=== PATIENT | female | born 1945 | race Caucasian/White ===

== ENCOUNTER 2017-05-07 18:59 | Inpatient (IN) | payer OTHER ==
[~2017-05-07] VITALS: Ht 157.5 cm; Wt 63.5 kg
[~2017-05-07 18:59] MED LIST: SIMV10TA84 PO
[2017-05-07] MEDS ORDERED: SODIUM CHLORIDE 0.9% 1,000 ML IV ONE (19:36)
[2017-05-07] MEDS ORDERED: ONDANSETRON HCL 4 MG/2 ML VIAL IV ONE (19:45)
[2017-05-07] MEDS ORDERED: MORPHINE SULFATE 4 MG/ML SYRG IV ONE (19:45)
[2017-05-07 20:02] LABS: Basophils # (auto) 0 uL; Basophils % (auto) 0.3 % (0.0-2.0); CONDITION Y; DEFINITIVE SEE PRINTOUT; Eosinophils # (auto) 0 uL; Eosinophils % (auto) 0.1 % (0.0-7.0); Hematocrit 32.9 % (36.0-46.0); Hemoglobin 11.2 g/dL (12.2-16.2); Lymphocytes # (auto) 1.2 uL; Mean Corpuscular Hemoglobin 35.8 pg (28.0-32.0); Mean Corpuscular Hgb Conc. 34.1 g/dL (32.0-36.0); Mean Platelet Volume 8.9 fL (7.4-10.4); Monocytes # (auto) 0.5 uL; Monocytes % (auto) 4.3 % (0.0-12.0); Neutrophils % (auto) 84.3 % (37.0-80.0); Platelet Count (auto) 186 10^3/uL (140-450); Red Cell Distribution Width 15.4 % (11.6-16.0); White Blood Cell 10.6 10^3/uL (4.4-10.8)
[2017-05-07 20:08] LABS: INR 1.09 (0.9-1.15); Partial Thromboplastin Time 29.9 sec (22.64-33.71); Prothrombin Time 11.9 sec (9.37-12.3)
[2017-05-07 20:20] LABS: Albumin 2.7 g/dL (3.4-5.0); BUN/Creatinine Ratio 14.2; Calcium 8.1 mg/dL (8.5-10.1); Magnesium 1.8 mg/dL (1.6-2.6); Potassium 3.8 mmol/L (3.5-5.1)
[2017-05-07 20:35] LABS: Macrocytosis Moderate; Platelet Estimate Adequate
[2017-05-07 20:38] LABS: B-Type Natriuretic Peptide 174.86 pg/mL (0-100)
[2017-05-07 21:12] LABS: Temperature: 22.9 C (20.0-25.0)
[2017-05-07] MEDS ORDERED: ASPirin 81 mg TAB PO ONE (23:00)
[2017-05-07] MEDS: SODIUM CHLORIDE 0.9% 1,000 ML IV SCH (23:00)
[2017-05-07] MEDS ORDERED: SODIUM CHLORIDE 0.9% 500 ML IV ONE (23:00)
[2017-05-07] MEDS ORDERED: NITROGLYCERIN 0.4 MG SL TAB SL PRN (23:00)
[2017-05-07] MEDS ORDERED: MORPHINE SULF INJ 2 MG/ML SYRINGE 1ML IV PRN (23:00)
[2017-05-07] MEDS ORDERED: ONDANSETRON HCL 4 MG/2 ML VIAL IV PRN (23:00)
[2017-05-07] MEDS ORDERED: ACETAMINOPHEN 325 MG TAB PO PRN (23:00)
[2017-05-08] MEDS: traZODone HCL 50 MG TAB PO SCH ×2 (02:08→21:42)
[2017-05-08] MEDS: ASPirin 81 mg TAB PO SCH (02:11)
[2017-05-08] MEDS: TEMAZEPAM 15 MG CAP PO PRN ×2 (02:11→22:48)
[2017-05-08] MEDS ORDERED: ENOXAPARIN SOD 60 MG/0.6 ML SYRINGE SC ONE (03:45)
[2017-05-08 06:39] LABS: Basophils # (auto) 0 uL; CONDITION Y; DEFINITIVE SEE PRINTOUT; Eosinophils # (auto) 0 uL; Eosinophils % (auto) 0.4 % (0.0-7.0); Hematocrit 35.1 % (36.0-46.0); Hemoglobin 11.8 g/dL (12.2-16.2); Lymphocytes # (auto) 1.8 uL; Lymphocytes % (auto) 23.8 % (10.0-50.0); Mean Corpuscular Hemoglobin 35.5 pg (28.0-32.0); Mean Corpuscular Hgb Conc. 33.5 g/dL (32.0-36.0); Mean Corpuscular Volume 105.9 fL (80.0-100.0); Mean Platelet Volume 8.9 fL (7.4-10.4); Monocytes # (auto) 0.5 uL; Monocytes % (auto) 7.2 % (0.0-12.0); Neutrophils # (auto) 5.1 uL; Neutrophils % (auto) 68.6 % (37.0-80.0); Platelet Count (auto) 203 10^3/uL (140-450); Red Cell Distribution Width 15.8 % (11.6-16.0); White Blood Cell 7.4 10^3/uL (4.4-10.8)
[2017-05-08 07:15] LABS: Potassium 3.5 mmol/L (3.5-5.1)
[2017-05-08 07:25] LABS: Albumin 2.6 g/dL (3.4-5.0); BUN/Creatinine Ratio 15.7; Bilirubin, Total 0.9 mg/dL (0.2-1.0); Total Protein 5.9 g/dL (6.4-8.2)
[2017-05-08] MEDS: HYDROcodone-ACET 5/325MG TAB PO PRN ×2 (09:10→15:40)
[2017-05-08] MEDS ORDERED: FAMOTIDINE 20 MG TAB PO SCH ×2 (10:00)
[2017-05-08] MEDS ORDERED: ENOXAPARIN SOD 30 MG/0.3 ML SYRINGE SC SCH (10:00)
[2017-05-08] MEDS: LISINOPRIL 5 MG TAB PO SCH (10:58)
[2017-05-08] MEDS: SODIUM CHLORIDE 0.9% 1,000 ML IV SCH (13:38)
[2017-05-08 13:49] LABS: Urine Bilirubin Negative (Negative); Urine Blood TRACE /uL (Negative); Urine Glucose Normal (Normal); Urine Ketone Negative (Negative); Urine Nitrite Negative (Negative); Urine RBC 3 /hpf (0 - 4); Urine Squamous Epithelial Cell FEW /hpf (<5); Urine Urobilinogen Normal (Negative); Urine pH 5.5 (5.0-8.0)
[2017-05-08] MEDS ORDERED: cefTRIAXone 1GM/50ML D5W 50 ML IV ONE (16:30)
[2017-05-08 17:34] LABS: Temperature: 22.9 C (20.0-25.0)
[2017-05-08] MEDS ORDERED: AZITHROMYCIN 500MG/D5W 250ML 250 ML IV ONE (21:30)
[2017-05-08] MEDS: METOPROLOL TARTRATE 25 MG TAB PO SCH (21:42)
[2017-05-09] VITALS (7 sets, daily range): BP systolic 118–165; BP diastolic 58–90
[2017-05-09] MEDS ORDERED: LORazepam 2MG/ML-1ML VIAL IV PRN
[2017-05-09] MEDS: SODIUM CHLORIDE 0.9% 1,000 ML IV SCH ×2 (01:26→14:46)
[2017-05-09] MEDS ORDERED: DIPH25CA6 PO (03:23)
[2017-05-09] MEDS ORDERED: ALBUAER3 IN (03:23)
[2017-05-09] MEDS ORDERED: MULTCAP45 PO (03:23)
[2017-05-09] MEDS ORDERED: MOME200A INH (03:23)
[2017-05-09] MEDS ORDERED: OMEP20CA74 PO (03:23)
[2017-05-09 05:29] LABS: Cholesterol 150 mg/dL (< 200); HDL Cholesterol 59 mg/dL (40-59); LDL Cholesterol 69 mg/dL (< 100); Triglycerides 76 mg/dL (< 150)
[2017-05-09] MEDS: cefTRIAXone 1GM/50ML D5W 50 ML IV SCH (08:54)
[2017-05-09] MEDS ORDERED: ENOXAPARIN SOD 30 MG/0.3 ML SYRINGE SC SCH (10:00)
[2017-05-09] MEDS: ASPirin 81 mg TAB PO SCH (10:00)
[2017-05-09] MEDS: METOPROLOL TARTRATE 25 MG TAB PO SCH ×3 (10:00→23:49)
[2017-05-09] MEDS: PANTOPRAZOLE 40 MG TAB PO SCH (10:00)
[2017-05-09] MEDS: LISINOPRIL 5 MG TAB PO SCH (10:00)
[2017-05-09] MEDS: AZITHROMYCIN 500MG/D5W 250ML 250 ML IV SCH (10:56)
[2017-05-09] MEDS: ALBUTEROL SULF 2.5 MG/0.5ML(0.5%) NEB SOLN NEB SCH ×2 (18:00→22:00)
[2017-05-09] MEDS: LORazepam 2MG/ML-1ML VIAL IV PRN (20:30)
[2017-05-09] MEDS: traZODone HCL 50 MG TAB PO SCH (20:50)
[2017-05-09] MEDS ORDERED: DILTIAZEM HCL 25 MG/5 ML VIAL IV ONE (23:00)
[2017-05-09] MEDS: TEMAZEPAM 15 MG CAP PO PRN (23:09)
[2017-05-10] VITALS: BP 122/78
[2017-05-10] MEDS ORDERED: DILTIAZEM HCL 25 MG/5 ML VIAL IV ONE (01:30)
[2017-05-10] MEDS: LORazepam 2MG/ML-1ML VIAL IV PRN (02:12)
[2017-05-10] MEDS: ALBUTEROL SULF 2.5 MG/0.5ML(0.5%) NEB SOLN NEB SCH ×6 (02:20→21:13)
[2017-05-10 04:00] VITALS: BP 159/94
[2017-05-10 08:00] VITALS: BP 111/48
[2017-05-10] MEDS: SODIUM CHLORIDE 0.9% 1,000 ML IV SCH ×2 (08:00→17:26)
[2017-05-10] MEDS: cefTRIAXone 1GM/50ML D5W 50 ML IV SCH (09:16)
[2017-05-10] MEDS ORDERED: ENOXAPARIN SOD 40 MG/0.4 ML SYRINGE SC SCH (10:00)
[2017-05-10] MEDS ORDERED: TEMA30CA5 PO (10:20)
[2017-05-10] MEDS ORDERED: TRAZ100T2 PO (10:20)
[2017-05-10] MEDS: AZITHROMYCIN 500MG/D5W 250ML 250 ML IV SCH (10:22)
[2017-05-10] MEDS: PANTOPRAZOLE 40 MG TAB PO SCH (10:22)
[2017-05-10] MEDS: ASPirin 81 mg TAB PO SCH (10:22)
[2017-05-10] MEDS: LISINOPRIL 5 MG TAB PO SCH (10:24)
[2017-05-10] MEDS: METOPROLOL TARTRATE 25 MG TAB PO SCH (10:25)
[2017-05-10] MEDS ORDERED: chlordiazePOXIDE HCL 25 MG CAP PO PRN (11:00)
[2017-05-10 12:00] VITALS: BP 113/68
[2017-05-10] MEDS ORDERED: THIAMINE HCL 100 MG/ML 2ML VIAL IV ONE (12:45)
[2017-05-10] MEDS ORDERED: chlordiazePOXIDE HCL 25 MG CAP PO ONE (12:45)
[2017-05-10] MEDS: VERAPAMIL HCL 40 MG TAB PO SCH ×2 (13:33→22:20)
[2017-05-10 15:12] LABS: Albumin 2.5 g/dL (3.4-5.0); BUN/Creatinine Ratio 15.7; Calcium 8.3 mg/dL (8.5-10.1); Potassium 3.6 mmol/L (3.5-5.1)
[2017-05-10 15:13] LABS: INR 1.06 (0.9-1.15); Partial Thromboplastin Time 26.5 sec (22.64-33.71); Prothrombin Time 11.6 sec (9.37-12.3)
[2017-05-10 15:16] LABS: Bilirubin, Total 0.8 mg/dL (0.2-1.0); Total Protein 5.7 g/dL (6.4-8.2)
[2017-05-10] MEDS ORDERED: WARFARIN SODIUM 2.5 MG TAB PO ONE (17:00)
[2017-05-10] MEDS: chlordiazePOXIDE HCL 5 MG CAP PO SCH (18:28)
[2017-05-10 20:15] VITALS: BP 131/64
[2017-05-10] MEDS: traZODone HCL 50 MG TAB PO SCH (22:21)
[2017-05-10] MEDS: ENOXAPARIN SOD 60 MG/0.6 ML SYRINGE SC SCH (22:22)
[2017-05-10] MEDS: AMIODARONE HCL 200 MG TAB PO SCH (22:22)
[2017-05-11] MEDS: ALBUTEROL SULF 2.5 MG/0.5ML(0.5%) NEB SOLN NEB SCH ×5 (02:38→18:42)
[2017-05-11 04:00] VITALS: BP 98/59
[2017-05-11] MEDS: chlordiazePOXIDE HCL 5 MG CAP PO SCH ×4 (06:00→17:07)
[2017-05-11] MEDS: SODIUM CHLORIDE 0.9% 1,000 ML IV SCH (06:00)
[2017-05-11] MEDS: VERAPAMIL HCL 40 MG TAB PO SCH ×3 (06:13→22:00)
[2017-05-11 08:00] VITALS: BP 119/62
[2017-05-11 08:32] LABS: Basophils # (auto) 0 uL; Basophils % (auto) 0.4 % (0.0-2.0); CONDITION Y; DEFINITIVE SEE PRINTOUT; Eosinophils # (auto) 0.1 uL; Hemoglobin 10.2 g/dL (12.2-16.2); Lymphocytes # (auto) 2.8 uL; Lymphocytes % (auto) 42.3 % (10.0-50.0); Mean Corpuscular Hemoglobin 35.4 pg (28.0-32.0); Mean Corpuscular Volume 107.3 fL (80.0-100.0); Mean Platelet Volume 9.1 fL (7.4-10.4); Monocytes % (auto) 15.2 % (0.0-12.0); Neutrophils # (auto) 2.6 uL; Neutrophils % (auto) 40.1 % (37.0-80.0); Platelet Count (auto) 158 10^3/uL (140-450); Red Cell Distribution Width 16.8 % (11.6-16.0); White Blood Cell 6.5 10^3/uL (4.4-10.8)
[2017-05-11 08:47] LABS: INR 1.27 (0.9-1.15); Partial Thromboplastin Time 30.1 sec (22.64-33.71)
[2017-05-11 08:52] LABS: Prothrombin Time 13.9 sec (9.37-12.3)
[2017-05-11 08:58] LABS: Albumin 2.3 g/dL (3.4-5.0); Calcium 8.2 mg/dL (8.5-10.1); Potassium 3.3 mmol/L (3.5-5.1)
[2017-05-11 08:59] LABS: BUN/Creatinine Ratio 12.7; Bilirubin, Total 0.7 mg/dL (0.2-1.0); Total Protein 5.5 g/dL (6.4-8.2)
[2017-05-11] MEDS ORDERED: POTASSIUM CHL 20 Meq TABLET PO ONE (09:15)
[2017-05-11] MEDS: AZITHROMYCIN 500MG/D5W 250ML 250 ML IV SCH (10:00)
[2017-05-11] MEDS: PANTOPRAZOLE 40 MG TAB PO SCH (10:26)
[2017-05-11] MEDS: AMIODARONE HCL 200 MG TAB PO SCH ×2 (10:27→22:00)
[2017-05-11] MEDS: ASPirin 81 mg TAB PO SCH (10:27)
[2017-05-11] MEDS: METOPROLOL TARTRATE 25 MG TAB PO SCH ×2 (10:27→22:00)
[2017-05-11] MEDS: ENOXAPARIN SOD 60 MG/0.6 ML SYRINGE SC SCH ×2 (10:28→22:52)
[2017-05-11] MEDS: traMADol HCL 50 MG TAB PO PRN ×2 (10:28→16:33)
[2017-05-11] MEDS: LISINOPRIL 5 MG TAB PO SCH (10:28)
[2017-05-11] MEDS: THIAMINE HCL 100 MG/ML 2ML VIAL IV SCH (10:29)
[2017-05-11] MEDS: cefTRIAXone 1GM/50ML D5W 50 ML IV SCH (10:29)
[2017-05-11] MEDS ORDERED: ALBUTEROL SULF 2.5 MG/0.5ML(0.5%) NEB SOLN NEB PRN (11:30)
[2017-05-11 11:58] VITALS: BP 130/73
[2017-05-11 12:31] LABS: Hematocrit 30.3 % (36.0-46.0); Hemoglobin 10.1 g/dL (12.2-16.2)
[2017-05-11 16:00] VITALS: BP 100/46
[2017-05-11] MEDS ORDERED: WARFARIN SODIUM 2.5 MG TAB PO ONE (17:00)
[2017-05-11] MEDS: IPRATROPIUM BROM 0.5 MG/2.5ML INH SOL NEB SCH (18:42)
[2017-05-11 19:00] LABS: Hematocrit 30.8 % (36.0-46.0); Hemoglobin 10.3 g/dL (12.2-16.2)
[2017-05-11 19:44] VITALS: BP 89/53
[2017-05-11] MEDS: TEMAZEPAM 15 MG CAP PO PRN (22:51)
[2017-05-11] MEDS: traZODone HCL 50 MG TAB PO SCH (22:51)
[2017-05-12] MEDS: chlordiazePOXIDE HCL 5 MG CAP PO SCH ×5 (00:13→23:41)
[2017-05-12] MEDS: IPRATROPIUM BROM 0.5 MG/2.5ML INH SOL NEB SCH ×4 (00:26→19:15)
[2017-05-12] MEDS: ALBUTEROL SULF 2.5 MG/0.5ML(0.5%) NEB SOLN NEB SCH ×4 (00:26→19:15)
[2017-05-12 00:44] LABS: Hematocrit 30.5 % (36.0-46.0)
[2017-05-12 04:55] VITALS: BP 117/48
[2017-05-12 06:26] LABS: INR 2.31 (0.9-1.15); Partial Thromboplastin Time 37.3 sec (22.64-33.71)
[2017-05-12 06:27] LABS: Prothrombin Time 25.4 sec (9.37-12.3)
[2017-05-12] MEDS: VERAPAMIL HCL 40 MG TAB PO SCH ×3 (06:39→22:00)
[2017-05-12 09:00] VITALS: BP 99/49
[2017-05-12] MEDS: PANTOPRAZOLE 40 MG TAB PO SCH (09:09)
[2017-05-12] MEDS: ASPirin 81 mg TAB PO SCH (09:09)
[2017-05-12] MEDS: THIAMINE HCL 100 MG/ML 2ML VIAL IV SCH (09:11)
[2017-05-12] MEDS: ENOXAPARIN SOD 60 MG/0.6 ML SYRINGE SC SCH (09:12)
[2017-05-12] MEDS: cefTRIAXone 1GM/50ML D5W 50 ML IV SCH (09:13)
[2017-05-12] MEDS: AZITHROMYCIN 500MG/D5W 250ML 250 ML IV SCH (09:17)
[2017-05-12] MEDS: METOPROLOL TARTRATE 25 MG TAB PO SCH ×2 (09:19→21:59)
[2017-05-12] MEDS: AMIODARONE HCL 200 MG TAB PO SCH ×3 (09:19→22:00)
[2017-05-12] MEDS: LISINOPRIL 5 MG TAB PO SCH (09:20)
[2017-05-12] MEDS: traMADol HCL 50 MG TAB PO PRN ×2 (09:40→16:42)
[2017-05-12 13:00] VITALS: BP 111/64
[2017-05-12] MEDS ORDERED: CYANOCOBALAMIN (B-12) 1000 MCG/1 ML VIAL IM ONE (14:15)
[2017-05-12] MEDS ORDERED: FOLIC ACID 1 MG TAB PO ONE (14:30)
[2017-05-12] MEDS ORDERED: WARFARIN SODIUM 2.5 MG TAB PO ONE (17:00)
[2017-05-12 17:06] VITALS: BP 119/81
[2017-05-12] MEDS: traZODone HCL 50 MG TAB PO SCH (21:59)
[2017-05-12 22:19] VITALS: BP 119/61
[2017-05-13] MEDS: IPRATROPIUM BROM 0.5 MG/2.5ML INH SOL NEB SCH ×4 (00:19→18:29)
[2017-05-13] MEDS: ALBUTEROL SULF 2.5 MG/0.5ML(0.5%) NEB SOLN NEB SCH ×4 (00:19→18:29)
[2017-05-13 01:37] VITALS: BP 104/60
[2017-05-13] MEDS: VERAPAMIL HCL 40 MG TAB PO SCH ×3 (06:00→22:00)
[2017-05-13] MEDS: chlordiazePOXIDE HCL 5 MG CAP PO SCH ×4 (06:05→23:47)
[2017-05-13 06:08] VITALS: BP 104/61
[2017-05-13 06:57] LABS: INR 3.25 (0.9-1.15); Partial Thromboplastin Time 35.7 sec (22.64-33.71)
[2017-05-13 07:01] LABS: Prothrombin Time 35.8 sec (9.37-12.3)
[2017-05-13 09:00] VITALS: BP 139/74
[2017-05-13] MEDS: METOPROLOL TARTRATE 25 MG TAB PO SCH (10:00)
[2017-05-13] MEDS: AMIODARONE HCL 200 MG TAB PO SCH (10:00)
[2017-05-13] MEDS: FOLIC ACID 1 MG TAB PO SCH (10:40)
[2017-05-13] MEDS: PANTOPRAZOLE 40 MG TAB PO SCH (10:40)
[2017-05-13] MEDS: ASPirin 81 mg TAB PO SCH (10:40)
[2017-05-13] MEDS: LISINOPRIL 5 MG TAB PO SCH (10:41)
[2017-05-13] MEDS: THIAMINE HCL 100 MG/ML 2ML VIAL IV SCH (10:42)
[2017-05-13] MEDS: AZITHROMYCIN 500MG/D5W 250ML 250 ML IV SCH (10:43)
[2017-05-13] MEDS: cefTRIAXone 1GM/50ML D5W 50 ML IV SCH (10:43)
[2017-05-13] MEDS: traMADol HCL 50 MG TAB PO PRN ×2 (12:18→18:31)
[2017-05-13 13:00] VITALS: BP 123/70
[2017-05-13 17:00] VITALS: BP 115/67
[2017-05-13] MEDS ORDERED: POTASSIUM CHL 20 Meq TABLET PO ONE (19:15)
[2017-05-13 22:00] VITALS: BP 106/58
[2017-05-13] MEDS: traZODone HCL 50 MG TAB PO SCH (22:08)
[2017-05-14 06:00] VITALS: BP 120/56
[2017-05-14] MEDS: VERAPAMIL HCL 40 MG TAB PO SCH (06:00)
[2017-05-14] MEDS: chlordiazePOXIDE HCL 5 MG CAP PO SCH ×2 (06:19→11:37)
[2017-05-14 06:31] LABS: Potassium 4.4 mmol/L (3.5-5.1)
[2017-05-14 06:52] LABS: Albumin 2.1 g/dL (3.4-5.0); BUN/Creatinine Ratio 11.3; Bilirubin, Total 0.3 mg/dL (0.2-1.0); Calcium 8.6 mg/dL (8.5-10.1); Total Protein 5.3 g/dL (6.4-8.2)
[2017-05-14] MEDS: ALBUTEROL SULF 2.5 MG/0.5ML(0.5%) NEB SOLN NEB SCH ×3 (07:11→12:15)
[2017-05-14] MEDS: IPRATROPIUM BROM 0.5 MG/2.5ML INH SOL NEB SCH ×3 (07:11→12:15)
[2017-05-14 09:00] VITALS: BP 106/58
[2017-05-14] MEDS: LISINOPRIL 5 MG TAB PO SCH (10:00)
[2017-05-14] MEDS: PANTOPRAZOLE 40 MG TAB PO SCH (10:24)
[2017-05-14] MEDS: FOLIC ACID 1 MG TAB PO SCH (10:24)
[2017-05-14] MEDS: ASPirin 81 mg TAB PO SCH (10:24)
[2017-05-14] MEDS: THIAMINE HCL 100 MG/ML 2ML VIAL IV SCH (10:24)
[2017-05-14] MEDS: traMADol HCL 50 MG TAB PO PRN (10:31)
[2017-05-14 11:54] VITALS: BP 106/58
== END 2017-05-14 13:45 | disposition home health service (06) | DRG 896 ==
LOC: EDBD 18:59 → ER 19:00 → TELE 19:01 → DOU IN ICU 05-09 02:07 → TELE-CENTR 05-11 21:36
PROVIDERS: ADMIT Nurse Practitioner; ATTEND Internal Medicine Pulmonary Disease
DX: F10.231 Alcohol dependence with withdrawal delirium (principal); G93.40 Encephalopathy, unspecified; E43 Unspecified severe protein-calorie malnutrition; E87.1 Hypo-osmolality and hyponatremia; J44.1 Chronic obstructive pulmonary disease with (acute) exacerbation; I24.9 Acute ischemic heart disease, unspecified; N18.3 Chronic kidney disease, stage 3 (moderate); E03.9 Hypothyroidism, unspecified; F32.9 Major depressive disorder, single episode, unspecified; E78.5 Hyperlipidemia, unspecified; I12.9 Hypertensive chronic kidney disease with stage 1 through stage 4 chronic kidney disease, or unspecified chronic kidney disease; Z60.2 Problems related to living alone; S81.019A Laceration without foreign body, unspecified knee, initial encounter; D53.1 Other megaloblastic anemias, not elsewhere classified; F43.20 Adjustment disorder, unspecified; E87.6 Hypokalemia; R29.6 Repeated falls; K76.0 Fatty (change of) liver, not elsewhere classified; S81.012A Laceration without foreign body, left knee, initial encounter; W18.39XA Other fall on same level, initial encounter; Z88.0 Allergy status to penicillin; Z82.49 Family history of ischemic heart disease and other diseases of the circulatory system; Y92.000 Kitchen of unspecified non-institutional (private) residence as the place of occurrence of the external cause; Z87.891 Personal history of nicotine dependence; Z91.013 Allergy to seafood; Z68.25 Body mass index [BMI] 25.0-25.9, adult; Y93.89 Activity, other specified; Y92.098 Other place in other non-institutional residence as the place of occurrence of the external cause; Y99.8 Other external cause status
CPT/HCPCS: 36415; 70450; 71010; 76705; 78582; 80053; 80061; 81001; 82140; 82270; 82550; 83735; 83880; 84443; 84484; 85014; 85018; 85025; 85045; 85379; 85610; 85652; 85730; 86141; 86850; 86900; 86901; 87040; 87086; 93005; 93306; 93970; 94640; 95819; 96361; 96374; 96375; 97163; A4565; J0696; J2405